=== PATIENT | male | born 1995 | race Hispanic/Latino ===

== ENCOUNTER 2016-11-18 19:59 | Emergency (ER) | payer OTHER ==
[2016-11-18 20:03] VITALS: BP 126/75; PULSE 66; RESP 16; TEMP 98; O2SAT 100
--- NOTE | 2016-11-18 20:44 | ED PDOC ---
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 PT states when he came back down he twisted the left ankle. PT reports lateral ankle pain and swelling. 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> Past Medical History Reviewed: Historical Data, Nursing Documentation, Vital Signs Vital Signs: Last Vital Signs Temp 98.0 F 11/18/16 20:00 Pulse 66 11/18/16 20:00 Resp 16 11/18/16 20:00 BP 126/75 11/18/16 20:00 Pulse Ox 100 11/18/16 20:00 - Medical History PMH: No Chronic Diseases - Surgical History Surgical History: No Surg Hx - Family History Family History: States: Unknown Family Hx - Living Arrangements Living Arrangements: With Family - Social History Current smoker - smoking cessation education provided: No Alcohol: None Drugs: Denies - Home Medications Home Medications: Ambulatory Orders Medication Instructions Recorded Ibuprofen [Motrin Tab] 800 mg PO Q6H PRN #20 tab 11/18/16 - Allergies Allergies/Adverse Reactions: Allergies Allergy/AdvReac Type Severity Reaction Status Date / Time No Known Allergies Allergy Verified 11/18/16 20:00 Review of Systems ROS Statement: Except As Marked, All Systems Reviewed And Found Negative Musculoskeletal: Positive for: Other (Left ankle pain, swelling ) Physical Exam - Reviewed Nursing Documentation Reviewed: Yes Vital Signs Reviewed: Yes - Physical Exam Appears: Positive for: Well, Non-toxic, No Acute Distress Head Exam: Positive for: ATRAUMATIC, NORMAL INSPECTION, NORMOCEPHALIC Skin: Positive for: Normal Color, Warm, DRY Eye Exam: Positive for: Normal appearance ENT: Positive for: Normal ENT Inspection Neck: Positive for: Normal, Painless ROM Respiratory: Negative for: Accessory Muscle Use, Respiratory Distress Pulses-Dorsalis Pedis (L): 2+ Pulses-Dorsalis Pedis (R): 2+ Pulses-Post. Tibialis (L): 2+ Pulses-Post. Tibialis (R): 2+ Back: Positive for: Normal Inspection Extremity: Positive for: Tenderness ((+) tenderness of the cuboid, (+) tenderness of the lateral malleolous ), Swelling (Left nakle ). Negative for: Normal ROM, Deformity Neurologic/Psych: Positive for: Alert, Oriented - ECG O2 Sat by Pulse Oximetry: 100 Disposition - Clinical Impression Clinical Impression: Ankle sprain - Patient ED Disposition Is Patient to be Admitted: No Counseled Patient/Family Regarding: Diagnosis, Need For Followup - Disposition Referrals: Podiatry Clinic [Outside] Disposition: Routine/Home Disposition Time: 22:42 Condition: GOOD Additional Instructions: Please follow-up with Dr. Serra. [place] [phone] [place] [address] JIM Schumacher (tuesdays) Eva [phone] Ice, elevation, motrin for pain. Please take motrin with food. Prescriptions: Ibuprofen [Motrin Tab] 800 mg PO Q6H PRN #20 tab PRN Reason: Pain Instructions: Ankle Sprain (ED)
--- NOTE | 2016-11-18 22:26 | CP.PCM.CON ---
History of Present Illness - History of Present Illness History of Present Illness: 21 year old male with no significant past medical history presenting to the ED with severe pain and swelling to the left lateral ankle. He states that he was playing volleyball and came down on his foot, twisting his ankle earlier this evening. 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 Patient denies any other symptoms or injuries at this time. Past Patient History - Past Social History Smoking Status: Never Smoked - PSYCHIATRIC Hx Substance Use: No - SURGICAL HISTORY Hx Surgeries: No - ANESTHESIA Hx Anesthesia: No Meds Home Medications: Home Medication List Medication Instructions Recorded Confirmed Type Ibuprofen [Motrin Tab] 800 mg PO Q6H PRN #20 tab 11/18/16 Rx Allergies/Adverse Reactions: Allergies Allergy/AdvReac Type Severity Reaction Status Date / Time No Known Allergies Allergy Verified 11/18/16 20:00 Physical Exam - Constitutional Appears: Well, Non-toxic, No Acute Distress - Neurological Exam Neurological exam: Oriented x3 - Psychiatric Exam Psychiatric exam: Normal Affect, Normal Mood - Additional Findings Additional findings: Left lower extremity exam: DERMATOLOGIC: No open lesions or rashes, skin color is normal, no blistering or ecchymosis noted. VASCULAR: DP/PT pulses 2/4, CRITICAL CARE TECHNICIAN<3 seconds, skin temperature is normal. There is severe localized edema at the lateral ankle at the level of the lateral ligaments. There is moderate edema of the medial ankle. NEUROLOGIC: Gross sensation intact, motor function intact ORTHOPEDIC: Severe pain on palpation to the left lateral ankle and ligaments. There is moderate pain on palpation to the medial ankle specifically at the posterior deltoids. No pain on palpation to the posterior ankle or achilles tendon, no pain with medial compression of the ankle syndesmosis, no pain to the proximal aspect of the fibula. There is decreased ankle joint ROM, however motion is still present. Anterior drawer sign is negative. Negative pain on palpation to the fifth metatarsal base. x-rays: Left ankle and foot negative for fracture or dislocation, mild widening of the medial clear space of the ankle, increase in soft tissue density and volume at the lateral ankle. Results - Vital Signs Recent Vital Signs: Last Vital Signs Temp 98.0 F 11/18/16 20:00 Pulse 66 11/18/16 20:00 Resp 16 11/18/16 20:00 BP 126/75 11/18/16 20:00 Pulse Ox 100 11/18/16 20:44 Assessment & Plan - Assessment and Plan (Free Text) Assessment: 21 year old male with severe ankle sprain of the left ankle. Plan: Patient seen and evaluated, discussed with attending Dr. Serra. X-rays reviewed, no fx or dislocation visualized. Applied Mckinney compression dressing to left ankle with surgical shoe Pt dispensed crutches and instructed to stay nwb to the LLE Patient to ice and elevate the LLE as much as possible Pt given Rx for naproxen Patient to f/u with Dr. Serra in his office next week
--- NOTE | 2016-11-19 10:19 | RAD ---
PROCEDURE: Left Ankle Radiographs. HISTORY: Lateral malleolus tenderness, twisted ankle COMPARISON: None FINDINGS: BONES: There is no acute fracture or bone destruction. Bone alignment is normal. JOINTS: Normal. Ankle mortise maintained. Talar dome intact SOFT TISSUES: There is moderate periarticular soft tissue swelling. OTHER FINDINGS: None. IMPRESSION: No acute fracture or dislocation. Moderate periarticular soft tissue swelling.
--- NOTE | 2016-11-19 10:43 | RAD ---
PROCEDURE: Left Foot Radiographs. HISTORY: cuboid tenderness, twisted ankle COMPARISON: None. FINDINGS: BONES: There is no acute displaced fracture. Bone mineralization is normal. JOINTS: Normal. SOFT TISSUES: Normal. OTHER FINDINGS: None. IMPRESSION: No acute displaced fracture or dislocation. Please note occult fractures cannot be excluded on plain radiographs. If there is a persistent clinical concern, an MRI may be performed for further evaluation.
== END 2016-11-18 22:59 | disposition home or self-care (01) ==
LOC: H.ER 19:59
DX: S99.912A Unspecified injury of left ankle, initial encounter (principal); X50.9XXA Other and unspecified overexertion or strenuous movements or postures, initial encounter; Y92.328 Other athletic field as the place of occurrence of the external cause